=== PATIENT | male | born 1975 | race African-American/Black ===

== ENCOUNTER 2021-03-26 06:31 | Day surgery (SDC) | payer BC ==
[2021-03-26] MEDS ORDERED: Lactated Ringers 1,000 ML IV SCH (07:00)
[2021-03-26] MEDS ORDERED: Pregabalin 75 MG Cap PO SCH (07:00)
[2021-03-26] MEDS ORDERED: ceFAZolin 2 GM in Premix Bag 1 BAG IV SCH (07:00)
[2021-03-26] MEDS ORDERED: Acetaminophen 1,000 MG in Premix Bag 1 BAG IV ONE (07:00)
--- NOTE | 2021-03-26 07:16 | PCM.PREANE ---
Preanesthetic Assessment - Anesthesia/Transfusion/Family Hx Anesthesia History: Prior Anesthesia Without Reaction Transfusion History: No Prior Transfusion(s) - Review of Systems General: No Symptoms Pulmonary: No Symptoms Cardiovascular: No Symptoms Gastrointestinal: No Symptoms Neurological: No Symptoms Other: Reports: None - Physical Assessment NPO Status Date: 03/26/21 NPO Status Time: 00:00 Height: 5 ft 9 in Weight: 222 lb ASA Class: 2 Mental Status: Alert & Oriented x3 Airway Class: Mallampati = 3 Dentition: Reports: Normal Dentition Thyro-Mental Finger Breadths: 3 Mouth Opening Finger Breadths: 3 ROM/Head Extension: Full Lungs: Clear to Auscultation, Normal Respiratory Effort Cardiovascular: Regular Rate, Regular Rhythm - Allergies Allergies/Adverse Reactions: Allergies Allergy/AdvReac Type Severity Reaction Status Date / Time seafood Allergy Rash Uncoded 03/20/21 09:51 - Anesthesia Plan Beta Paty: Other (Amlodipine p-trixie HCTZ) - Acknowledgements Anesthesia Type Planned: General Anesthesia Pt an Appropriate Candidate for the Planned Anesthesia: Yes Alternatives and Risks of Anesthesia Discussed w Pt/Guardian: Yes Pt/Guardian Understands and Agrees with Anesthesia Plan: Yes PreAnesthesia Questionnaire HEENT History: Reports: None Cardiovascular History: Reports: Hypertension Respiratory History: Reports: None Gastrointestinal History: Reports: None Genitourinary History: Reports: None Musculoskeletal History: Reports: Fracture Other Musculoskeletal History: states in 2010 fractured pelvis and lower lumbar Neurological History: Reports: None Psychiatric History: Reports: None Endocrine/Metabolic History: Reports: Obesity/BMI 30+ Hematologic History: Reports: None Immunologic History: Reports: None Oncologic (Cancer) History: Reports: None Dermatologic History: Reports: None - Infectious Disease History Infectious Disease History: Reports: None - Past Surgical History Head Surgeries/Procedures: Reports: None HEENT Surgical History: Reports: Other (See Below) Other HEENT Surgeries/Procedures: hx rt ear surgery Cardiovascular Surgical History: Reports: None Respiratory Surgical History: Reports: None GI Surgical History: Reports: None Male Surgical History: Reports: None Endocrine Surgical History: Reports: None Neurological Surgical History: Reports: None Musculoskeletal Surgical History: Reports: None Oncologic Surgical History: Reports: None Dermatological Surgical History: Reports: None - SUBSTANCE USE Tobacco Use Status *Q: Current Every Day Tobacco User Tobacco Use Within Last Twelve Months: Cigarettes - HOME MEDS Home Medications: Home Meds Lisinopril/Hydrochlorothiazide [Lisinopril-Hctz 20-25 mg Tab] 1 tab PO DAILY 03/20/21 [History] amLODIPine Besylate [Amlodipine Besylate] 5 mg PO DAILY 03/20/21 [History] - CURRENT (IN HOUSE) MEDS Current Meds: Current Medications Cefazolin Sodium/Dextrose 2 gm (/ Premix) 50 mls @ 100 mls/hr IV ONCALL IRASEMA Lactated Ringer's (Ringers, Lactated) 1,000 mls @ 125 mls/hr IV ONCALL IRASEMA Last Admin: 03/26/21 07:08 Dose: 125 mls/hr Documented by: Pregabalin (Pregabalin 75 Mg Cap) 150 mg PO ONCALL IRASEMA Last Admin: 03/26/21 07:09 Dose: 150 mg Documented by: Discontinued Medications Acetaminophen 1,000 mg/ Premix 100 mls @ 400 mls/hr IV ONCALL ONE Stop: 03/26/21 07:14 Last Admin: 03/26/21 07:14 Dose: 400 mls/hr Documented by:
[2021-03-26] MEDS ORDERED: fentaNYL 100 MCG/2 ML SDV IVPUSH PRN (07:17)
[2021-03-26] MEDS ORDERED: Naloxone 0.4 MG/ML SDV IVPUSH PRN (07:17)
[2021-03-26] MEDS ORDERED: HYDROmorphone 1 MG/ML Syringe IVPUSH PRN (07:17)
[2021-03-26] MEDS ORDERED: Albuterol 0.083% 2.5 MG/3 ML Neb Soln NEB PRN (07:17)
[2021-03-26] MEDS ORDERED: Morphine 2 MG/ML SYRINGE IVPUSH PRN (07:17)
[2021-03-26] MEDS ORDERED: Metoclopramide 10 MG/2 ML SDV IVPUSH PRN (07:17)
[2021-03-26] MEDS ORDERED: Ondansetron 4 MG/2 ML SDV IVPUSH PRN (07:17)
[2021-03-26] MEDS ORDERED: Dexamethasone 4 MG/ML 5 ML MDV ONE (07:23)
[2021-03-26] MEDS ORDERED: Rocuronium Bromide 50 MG/5 ML Syringe ONE ×2 (07:23→08:59)
[2021-03-26] MEDS ORDERED: fentaNYL 100 MCG/2 ML SDV ONE (07:23)
[2021-03-26] MEDS ORDERED: Ondansetron 4 MG/2 ML SDV ONE (07:23)
[2021-03-26] MEDS ORDERED: Propofol 200 MG/20 ML SDV ONE (07:23)
[2021-03-26] MEDS ORDERED: Lidocaine 2% 5 ML SDV ONE ×2 (07:23→07:24)
[2021-03-26] MEDS ORDERED: Midazolam 1 MG/ML 2 ML SDV ONE (07:23)
[2021-03-26] MEDS ORDERED: Sugammadex Sodium 200 MG/2 ML VIAL ONE (07:23)
[2021-03-26] MEDS ORDERED: Octyl 2-Cyanoacrylate 1 Tube ONE (07:34)
[2021-03-26] MEDS ORDERED: Bupivacaine 0.5% 30 ML SDV ONE (07:34)
[2021-03-26] MEDS ORDERED: Ketorolac 30 MG/ML SDV ONE (09:17)
--- NOTE | 2021-03-26 09:32 | PCM.OPNOTE ---
- General Post-Op/Procedure Note Date of Surgery/Procedure: 03/26/21 Operative Procedure(s): Laparoscopic right inguinal hernia repair Findings: direct inguinal hernia dictation number [id number] Pre Op Diagnosis: right inguinal hernia Post-Op Diagnosis: right direct inguinal hernia Anesthesia Technique: General ET Tube Primary Surgeon: Florentino Wakefield Pathology: none EBL in mLs: 5 Complications: None Condition: Good Free Text/Narrative:: Intake & Output 03/25/21 03/26/21 03/26/21 22:59 06:59 14:59 Output Total 150 Balance -150
--- NOTE | 2021-03-26 09:46 | PCM48HPAN ---
Post Anesthesia Note - EVALUATION WITHIN 48HRS OF ANESTHETIC Vital Signs in Normal Range: Yes Patient Participated in Evaluation: Yes Respiratory Function Stable: Yes Airway Patent: Yes Cardiovascular Function Stable: Yes Hydration Status Stable: Yes Pain Control Satisfactory: Yes Nausea and Vomiting Control Satisfactory: Yes Mental Status Recovered: Yes Vital Signs: Last Vital Signs Temp 97.3 F 03/26/21 06:40 Pulse 93 03/26/21 06:40 Resp 16 03/26/21 06:40 BP 141/96 H 03/26/21 06:40 Pulse Ox 96 03/26/21 06:40
--- NOTE | 2021-03-26 09:46 | PCM.POSTAN ---
POST ANESTHESIA ASSESSMENT - MENTAL STATUS Mental Status: Alert, Oriented - VITAL SIGNS Vital Signs: Last Vital Signs Temp 97.3 F 03/26/21 06:40 Pulse 93 03/26/21 06:40 Resp 16 03/26/21 06:40 BP 141/96 H 03/26/21 06:40 Pulse Ox 96 03/26/21 06:40 - RESPIRATORY Respiratory Status: Respiratory Rate WNL, Airway Patent, O2 Saturation Stable - CARDIOVASCULAR CV Status: Pulse Rate WNL, Blood Pressure Stable - GASTROINTESTINAL GI Status: No Symptoms - POST OP HYDRATION Hydration Status: Adequate & Stable
--- NOTE | 2021-03-26 13:50 | OR ---
SURGEON: SAL GONSALVES MD DATE OF PROCEDURE: 03/26/2021 PREOPERATIVE DIAGNOSIS: Right inguinal hernia. POSTOPERATIVE DIAGNOSIS: Direct right inguinal hernia. PROCEDURE PERFORMED: Laparoscopic repair of right inguinal hernia with mesh. PRIMARY SURGEON: Sal Gonsalves MD. ANESTHESIA: General. ESTIMATED BLOOD LOSS: 5 mL. SPECIMENS: None. COMPLICATIONS: None. REASON FOR PROCEDURE: The patient is a pleasant 45-year-old gentleman who had hernia for the past 3 years. It was slowly becoming larger. It has become more comfortable and would like to have it repaired. I did go over with the patient risks, goals, and alternatives of the procedure again. OPERATION NARRATIVE: The patient was brought back to the OR. He was prepped and draped in the usual sterile fashion. SCDs placed. Chua catheter placed. Preoperative antibiotics were given. Anesthesia provided by the anesthesia team. Time-out was performed. An infraumbilical incision was made. Incision made down to the external rectus fascia. A small incision was made. The underlying rectus muscle was atraumatically split down to the posterior rectus sheath. Now a balloon dissecting system was inserted and directed towards pubic symphysis. The balloon was inflated under direct visualization. Balloon dissecting system was removed and a Saturnino trocar was placed. Preperitoneal pneumo was established. Now, two more 5 mm trocars were placed under direct visualization in in the lower midline. The pubic tubercle was cleared. The patient did have a moderate-sized right direct inguinal hernia. This was completely reduced. The right lateral wall was then cleared. The patient did have good peritoneal reflection. This was carried up to give good placement for the mesh. I did look at his Inguinal spermatic cord. The patient did not really have any cord lipoma or indirect hernia sac. Now, a large 3DMax MDI mesh was placed. It was secured in place with 3 absorbable Bard tacks in the periosteum, Arnold's ligament, one laterally, and one superior, making sure not to put any in the psoas or the gastric vessel any vessel or nerve entrapment. The mesh was tucked underneath the peritoneal reflection. The preperitoneal pneumo was released. Mesh appeared to be in good position and laid flat underneath the peritoneal reflection. Now, the 5 mm trocars were removed along with the Saturnino trocar. The patient did have some air in his peritoneum. So, 14-gauge Angiocath needle was placed at the layer of the umbilicus just to the posterior rectus sheath. The abdomen was then desufflated. Now, the angiocath was removed and then the external rectus fascia was closed with [id number] 0 Vicryl. The rest of the local was injected into the port sites. All the port sites were then closed with 4-0 Monocryl and Dermabond. At the end of the case sponge and needle counts were correct. The patient was transferred to recovery room in stable condition. YFN MAGALLON /[id number]
== END 2021-03-26 11:40 | disposition home or self-care (01) ==
LOC: MW.SDS 06:31
PROVIDERS: ATTEND Surgery
DX: K40.90 Unilateral inguinal hernia, without obstruction or gangrene, not specified as recurrent (principal); I10 Essential (primary) hypertension; E66.9 Obesity, unspecified; F17.210 Nicotine dependence, cigarettes, uncomplicated; Z91.013 Allergy to seafood; Z98.890 Other specified postprocedural states; Z79.899 Other long term (current) drug therapy; Z68.32 Body mass index [BMI] 32.0-32.9, adult
CPT/HCPCS: 49650; A9270; J0131; J0690; J1100; J1885; J2250; J2370; J2405; J2704; J3010; J3490; J7120; 00840; C1781

== ENCOUNTER 2022-03-16 10:23 | Emergency (ER) | payer BC | END 2022-03-16 12:39 | disposition home or self-care (01) | LOC: MW.ED 10:23 | DX: K61.1 Rectal abscess (principal); I10 Essential (primary) hypertension; F17.210 Nicotine dependence, cigarettes, uncomplicated; E66.9 Obesity, unspecified; Z68.30 Body mass index [BMI] 30.0-30.9, adult; Z91.013 Allergy to seafood; Z79.899 Other long term (current) drug therapy; Z86.16 Personal history of COVID-19 | CPT/HCPCS: 99282 ==

== ENCOUNTER 2022-07-10 08:52 | Day surgery (SDC) | payer BC ==
[~2022-07-10 08:52] MED LIST: Lactated Ringers 1,000 ML IV SCH; Sodium Chloride 0.9% 10 ML Syringe FLUSH PRN; Sodium Chloride 0.9% 2.5 ML Syringe FLUSH PRN; Sodium Chloride 0.9% 20 ML SDV IV PRN
[2022-07-10] MEDS ORDERED: Propofol 200 MG/20 ML SDV ONE (10:08)
[2022-07-10] MEDS ORDERED: Lidocaine 2% 5 ML SDV ONE (10:08)
== END 2022-07-10 11:20 | disposition home or self-care (01) ==
LOC: MW.SDS 08:52
PROVIDERS: ATTEND Surgery
DX: Z12.11 Encounter for screening for malignant neoplasm of colon (principal); D12.3 Benign neoplasm of transverse colon; E66.9 Obesity, unspecified; I10 Essential (primary) hypertension; F17.210 Nicotine dependence, cigarettes, uncomplicated; Z68.30 Body mass index [BMI] 30.0-30.9, adult; Z86.16 Personal history of COVID-19; Z91.013 Allergy to seafood; Z79.899 Other long term (current) drug therapy; Z91.048 Other nonmedicinal substance allergy status; Z98.890 Other specified postprocedural states
CPT/HCPCS: 45380; J2704; J7120; J3490

== ENCOUNTER 2025-01-17 07:32 | Emergency (ER) | payer BC ==
[2025-01-17 08:46] LABS: BASOPHILS ABSOLUTE AUTO 0.07 K/uL (0.00-0.20); BASOPHILS PERCENT AUTO 0.5 % (0.0-1.0); EOSINOPHILS ABSOLUTE AUTO 0.19 K/uL (0.00-0.45); EOSINOPHILS PERCENT AUTO 1.3 % (0.0-6.0); IMMATURE GRAN ABSOLUTE AUTO 0.07 K/uL (0.00-0.05); IMMATURE GRAN PERCENT AUTO 0.5 % (0.0-0.4); LYMPHOCYTES ABSOLUTE AUTO 1.34 K/uL (1.00-4.80); LYMPHOCYTES PERCENT AUTO 9.2 % (24.0-44.0); MEAN PLATELET VOLUME 10.2 fL (9.4-12.4); MONOCYTES ABSOLUTE AUTO 1.39 K/uL (0.00-0.80); MONOCYTES PERCENT AUTO 9.5 % (0.0-8.0); NEUTROPHILS ABSOLUTE AUTO 11.57 K/uL (1.80-7.70); NEUTROPHILS PERCENT AUTO 79.0 % (41.0-71.0); NRBC ABSOLUTE 0.00 K/uL (0.00-0.02); NRBC PERCENT 0.0 /100WBC (0.0-0.2); PLATELET COUNT,PLT 492 K/uL (150-400); RED BLOOD CELL COUNT 3.23 M/uL (4.52-5.90); WHITE BLOOD CELL COUNT,WBC 14.63 K/uL (3.9-11.3)
[2025-01-17] MEDS: Iopamidol 755 MG/ML 500 ML Multipack Bottle IVPUSH STA (09:00)
[2025-01-17 09:03] LABS: A/G RATIO 0.6 (0.9-1.6); ALANINE AMINOTRANSFERASE,ALT 64.0 IU/L (14-63); ASPARTATE AMNIOTRANSFERASE,AST 76.0 IU/L (15-37); BILIRUBIN TOTAL 0.6 mg/dL (0.2-1.0); BLOOD UREA NITROGEN,BUN 15.0 mg/dL (7.0-18.0); CARBON DIOXIDE,CO2 27.2 mmol/L (21.0-32.0); CHLORIDE,CL 95.0 mmol/L (98-107); CREATININE 1.2 mg/dL (0.8-1.3); EST CRCL DRUG DOSING (CG) 73.65 mL/min; GLUCOSE RANDOM 145.0 mg/dL (74-106); POTASSIUM,K 4.1 mmol/L (3.5-5.1); PROTEIN TOTAL,TP 7.5 g/dL (6.4-8.2); SODIUM,NA 131.0 mmol/L (136-148)
[2025-01-17 09:05] LABS: ESTIMATED GFR 74.0 mL/min (>60)
[2025-01-17 09:06] LABS: APPEARANCE,URINE CLEAR; GLUCOSE,URINE NEGATIVE (NEGATIVE); OCCULT BLOOD,URINE SMALL (NEGATIVE)
[2025-01-17] MEDS: Ketorolac 30 MG/ML SDV IVPUSH ONE (09:12)
[2025-01-17 09:40] LABS: EPITHELIAL CELLS,URINE RARE (NONE-FEW)
== END 2025-01-17 11:40 | disposition home or self-care (01) ==
LOC: MW.ED 07:32
DX: R16.0 Hepatomegaly, not elsewhere classified (principal); R94.5 Abnormal results of liver function studies; I10 Essential (primary) hypertension; Z91.013 Allergy to seafood; Z79.899 Other long term (current) drug therapy
CPT/HCPCS: 36415; 74177; 80053; 81001; 83605; 83690; 83735; 85025; 96361; 96374; 99284; J1885; J7030; Q9967